=== PATIENT | male | born 2000 | race Caucasian/White ===

== ENCOUNTER 2024-04-17 08:37 | Emergency (ER) | payer BC ==
[2024-04-17] MEDS ORDERED: Sodium Chloride 0.9% 10 ML Syringe FLUSH PRN (08:48)
[2024-04-17] MEDS ORDERED: Morphine 4 MG/ML Syringe IVPUSH PRN (08:56)
[2024-04-17] MEDS: Pantoprazole 80 MG in Sodium Chloride 0.9% 10 ML IVPUSH ONE (09:14)
[2024-04-17] MEDS: Ondansetron 4 MG/2 ML SDV IVPUSH ONE (09:16)
[2024-04-17 09:19] LABS: BASOPHILS ABSOLUTE AUTO 0.01 K/uL (0.00-0.20); BASOPHILS PERCENT AUTO 0.3 % (0.0-1.0); EOSINOPHILS ABSOLUTE AUTO 0.01 K/uL (0.00-0.45); EOSINOPHILS PERCENT AUTO 0.3 % (0.0-6.0); HEMATOCRIT 45.3 % (42.0-52.0); HEMOGLOBIN 16.2 g/dL (14.0-18.0); LYMPHOCYTES ABSOLUTE AUTO 1.01 K/uL (1.00-4.80); LYMPHOCYTES PERCENT AUTO 28.5 % (24.0-44.0); MEAN CORPUSCULAR HEMOGLOBIN 30.5 pg (28.0-32.0); MEAN CORPUSCULAR HGB CONC 35.8 g/dL (32.0-36.0); MEAN CORPUSCULAR VOLUME 85.3 fL (83.0-99.0); MEAN PLATELET VOLUME 10.6 fL (9.4-12.4); MONOCYTES ABSOLUTE AUTO 0.38 K/uL (0.00-0.80); MONOCYTES PERCENT AUTO 10.7 % (0.0-8.0); NEUTROPHILS ABSOLUTE AUTO 2.14 K/uL (1.80-7.70); NEUTROPHILS PERCENT AUTO 60.2 % (41.0-71.0); PLATELET COUNT,PLT 186 K/uL (150-400); RED BLOOD CELL COUNT 5.31 M/uL (4.52-5.90); WHITE BLOOD CELL COUNT,WBC 3.55 K/uL (3.9-11.3)
[2024-04-17] MEDS: Sodium Chloride 0.9% 1,000 ML IV ONE (09:54)
[2024-04-17 10:06] LABS: A/G RATIO 1.5 (0.9-1.6); ALANINE AMINOTRANSFERASE,ALT 40 IU/L (14-63); ALBUMIN 4.7 g/dL (3.4-5.0); ALKALINE PHOSPHATASE 40 U/L (46-116); ASPARTATE AMNIOTRANSFERASE,AST 19 IU/L (15-37); BILIRUBIN TOTAL 1.5 mg/dL (0.2-1.0); BLOOD UREA NITROGEN,BUN 16 mg/dL (7.0-18.0); CALCIUM 9.9 mg/dL (8.5-10.1); CARBON DIOXIDE,CO2 28.6 mmol/L (21.0-32.0); CREATININE 1.1 mg/dL (0.8-1.3); EST CRCL DRUG DOSING (CG) 111.24 mL/min; GLUCOSE RANDOM 104 mg/dL (74-106); LIPASE 27 U/L (16-77); PROTEIN TOTAL,TP 7.8 g/dL (6.4-8.2)
[2024-04-17 10:17] LABS: C-REACTIVE PROTEIN < 0.05 mg/dL (<0.3); CHLORIDE,CL 103 mmol/L (98-107); ESTIMATED GFR 97 mL/min (>60); POTASSIUM,K 3.9 mmol/L (3.5-5.1); SODIUM,NA 143 mmol/L (136-148)
[2024-04-17] MEDS: Iopamidol 755 MG/ML 500 ML Multipack Bottle IVPUSH STA (12:58)
[2024-04-17] MEDS: predniSONE 20 MG Tab PO ONE (13:21)
== END 2024-04-17 13:55 | disposition home or self-care (01) ==
LOC: MW.ED 08:37
DX: K62.5 Hemorrhage of anus and rectum (principal); D72.819 Decreased white blood cell count, unspecified; R10.31 Right lower quadrant pain; R10.32 Left lower quadrant pain; Z79.899 Other long term (current) drug therapy; Z88.1 Allergy status to other antibiotic agents; Z83.79 Family history of other diseases of the digestive system
CPT/HCPCS: 36415; 74177; 80053; 83690; 85025; 85652; 86140; 96361; 96374; 96375; 99284; J2405; J2470; J3490; J7030; Q9967